=== PATIENT | male | born 1940 | race Caucasian/White ===

== ENCOUNTER 2018-08-03 14:01 | Emergency (ER) | payer MEDICARE ==
[~2018-08-03] VITALS: Ht 182.9 cm; Wt 73.0 kg
--- NOTE | 2018-08-03 14:13 | NUR ---
PT BIB [facility] FROM [place] DX AFTER ECHO WHICH WAS NORMAL, AFTER TEST PT REPORTS BECOMING DIZZY AND NEAR SYNCOPAL EPISODE. CURRENTLY UNDER TREATMENT FOR CA, STATES CANT EAT VERY WELL AND FEELS WEAK. HPTN INITIALLY FOR [facility], IV IN PLACE CL[employer] WORK[employer] 500ML NS GIVEN. CONNECTED TO ALL MONITORING, TACHY HR 120S, SATS 88% RA SUPP O2 APPLIED, RAPID RESP RATE. EKG COMPLETED. PA TO BEDSIDE FOR ASSESSMENT, AWAITING ORDERS AT THIS TIME. CALL LIGHT WITHIN REACH.
[2018-08-03 14:41] LABS: BASOPHILS # (AUTO) 0.01 x10^3/uL (0-0.1); BASOPHILS % (AUTO) 0 % (0-1); EOSINOPHILS # (AUTO) 0.03 x10^3/uL (0-0.4); EOSINOPHILS % (AUTO) 0 % (1-7); LYMPHOCYTES # (AUTO) 0.98 x10^3/uL (1-3.4); LYMPHOCYTES % (AUTO) 11 % (22-44); MD NO; MEAN CORPUSCULAR HEMOGLOBIN 29.7 pg (27.5-34.5); MEAN CORPUSCULAR HGB CONC 33.7 g/dL (33.2-36.2); MEAN CORPUSCULAR VOLUME 88.1 fL (81-97); MEAN PLATELET VOLUME 7.3 fL (7.4-10.4); MONOCYTES % (AUTO) 10 % (2-9); NEUTROPHILS # (AUTO) 6.97 x10^3/uL (1.8-6.8); NEUTROPHILS % (AUTO) 78 % (42-75); PLATELET COUNT 332 x10^3/uL (130-400); RED BLOOD COUNT 3.69 x10^6/uL (4.38-5.82); RED CELL DISTRIBUTION WIDTH 15.3 % (9.4-14.8)
[2018-08-03 14:52] LABS: ALANINE AMINOTRANSFERASE 182 U/L (12-78); ALBUMIN 2.3 g/dL (3.4-5.0); ANION GAP 10 mmol/L (5-15); CHLORIDE 103 mmol/L (98-107)
[2018-08-03 14:54] LABS: ALKALINE PHOSPHATASE 105 U/L (45-117); BILIRUBIN,TOTAL 0.4 mg/dL (0.2-1.0)
--- NOTE | 2018-08-03 15:07 | NUR ---
ALL RESULTS BACK AT THIS TIME, CHART UP FOR RECHECK
[2018-08-03] MEDS ORDERED: LISI-170 PO (15:11)
[2018-08-03] MEDS ORDERED: GLIP10TA13 PO (15:11)
--- NOTE | 2018-08-03 15:14 | NUR ---
NEW ORDERS RECEIVED FOR FLUIDS AT THIS TIME.
[2018-08-03] MEDS ORDERED: SODIUM CHLORIDE 0.9% 1,000ML IVBOLUS ONE (15:30)
--- NOTE | 2018-08-03 15:57 | NUR ---
FLUIDS COMPLETED. VSS. PT SLEEPING IN ROOM, NADN. AWAITING DISPO AT THIS TIME
[2018-08-03] MEDS ORDERED: CHEMO MEDS (15:58)
--- NOTE | 2018-08-03 16:07 | NUR ---
REPORT GIVEN TO RENETTA LANDRUM
--- NOTE | 2018-08-03 17:56 | NUR ---
Patient given discharge instructions and they have confirmed that they understand the instructions. Patient pushed in wheelchair to d/c. Pt left with all personal belongings, d/c paperwork, and taxi voucher.
[2018-08-03 17:57] VITALS: BP 132/81
[2018-08-04] MEDS ORDERED: BINI15TA PO (15:46)
[2018-08-04] MEDS ORDERED: ENCO75CA PO (15:46)
== END 2018-08-03 18:02 | disposition home or self-care (01) ==
LOC: ED 17:20
DX: R42 Dizziness and giddiness (principal); R55 Syncope and collapse; C43.9 Malignant melanoma of skin, unspecified
CPT/HCPCS: 36415; 80053; 85025; 93005; 99284; J7030

== ENCOUNTER 2018-08-04 15:26 | Inpatient (IN) | payer MEDICARE ==
[~2018-08-04] VITALS: Ht 182.9 cm; Wt 78.0 kg
[~2018-08-04 15:26] MED LIST: CHEMO MEDS; GLIP10TA13 PO; LISI-170 PO
--- NOTE | 2018-08-04 15:42 | NUR ---
LANDON BARRON AT BEDSIDE TO ASSESS
[2018-08-04] MEDS ORDERED: ENCO75CA PO (15:46)
[2018-08-04] MEDS ORDERED: BINI15TA PO (15:46)
[2018-08-04 16:12] LABS: BASOPHILS # (AUTO) 0.02 x10^3/uL (0-0.1); BASOPHILS % (AUTO) 0 % (0-1); EOSINOPHILS # (AUTO) 0.01 x10^3/uL (0-0.4); EOSINOPHILS % (AUTO) 0 % (1-7); LYMPHOCYTES # (AUTO) 0.69 x10^3/uL (1-3.4); LYMPHOCYTES % (AUTO) 7 % (22-44); MD NO; MEAN CORPUSCULAR HEMOGLOBIN 29.6 pg (27.5-34.5); MEAN CORPUSCULAR HGB CONC 33.6 g/dL (33.2-36.2); MEAN PLATELET VOLUME 7.5 fL (7.4-10.4); MONOCYTES # (AUTO) 0.81 x10^3/uL (0.2-0.8); MONOCYTES % (AUTO) 8 % (2-9); NEUTROPHILS # (AUTO) 8.44 x10^3/uL (1.8-6.8); NEUTROPHILS % (AUTO) 85 % (42-75); PLATELET COUNT 302 x10^3/uL (130-400); RED BLOOD COUNT 3.64 x10^6/uL (4.38-5.82); RED CELL DISTRIBUTION WIDTH 15.2 % (9.4-14.8)
[2018-08-04 16:24] LABS: ALANINE AMINOTRANSFERASE 277 U/L (12-78); ALBUMIN 2.3 g/dL (3.4-5.0); ANION GAP 12 mmol/L (5-15); CALCIUM 7.9 mg/dL (8.5-10.1); CHLORIDE 104 mmol/L (98-107); CREATININE 1.49 mg/dL (0.7-1.3); INTERNATIONAL NORMALIZED RATIO 1.11 (0.93-1.1); PROTHROMBIN TIME 11.6 Seconds (9.6-11.5)
[2018-08-04 16:28] LABS: ALKALINE PHOSPHATASE 108 U/L (45-117); BILIRUBIN,TOTAL 0.5 mg/dL (0.2-1.0); TOTAL PROTEIN 6.1 g/dL (6.4-8.2); TROPONIN I < 0.015 ng/mL (0.000-0.045)
--- NOTE | 2018-08-04 16:45 | NUR ---
PT IN CT SCAN AT THIS TIME
--- NOTE | 2018-08-04 16:58 | NUR ---
PT RETURNED FROM CT IN NAD
[2018-08-04] MEDS ORDERED: OMNIPAQUE 350 MG/ML, 150 ML BOTTLE ONE (16:59)
[2018-08-04] MEDS ORDERED: AZITHROMYCIN 500 MG in SODIUM CHLORIDE 0.9% 250 ML IVPB ONE (17:30)
[2018-08-04] MEDS ORDERED: CEFTRIAXONE PMX 1GM/50ML 50 ML IVPB ONE (17:30)
--- NOTE | 2018-08-04 17:50 | NUR ---
[employer] ME[employer]IC AT BEDSIDE TO DRAW CULTURES X 2 PRIOR TO RN INITIATING IV ABX. PT TO BE ADMITTED
[2018-08-04] MEDS ORDERED: CEFTRIAXONE PMX 2GM/50ML 50 ML ONE (17:57)
[2018-08-04] MEDS ORDERED: ONDANSETRON 2MG/ML, 2ML IVPush PRN (18:00)
[2018-08-04] MEDS ORDERED: ONDANSETRON ODT 4 MG PO PRN (18:00)
[2018-08-04] MEDS ORDERED: IBUPROFEN 600 MG TABLET PO PRN (18:00)
[2018-08-04] MEDS ORDERED: ENALAPRILAT 1.25 MG/ML, 2ML IVPush PRN (18:00)
[2018-08-04] MEDS ORDERED: hydrALAzine 20 MG/ML, 1ML IVPush PRN (18:00)
[2018-08-04] MEDS ORDERED: ACETAMINOPHEN 325 MG TABLET PO PRN (18:00)
[2018-08-04] MEDS: CEFTRIAXONE PMX 2GM/50ML 50 ML IV SCH (18:14)
[2018-08-04] MEDS: HEPARIN 5,000 UNITS/ML, 1ML SQ SCH (19:15)
[2018-08-04] MEDS: SODIUM CHLORIDE 0.9% 1,000 ML IV SCH (19:17)
[2018-08-04 19:31] VITALS: BP 101/55
[2018-08-04 21:17] LABS: HEMOGLOBIN A1C 6.9 % (4.2-6.3)
[2018-08-05 00:37] VITALS: BP 120/60
[2018-08-05] MEDS: HEPARIN 5,000 UNITS/ML, 1ML SQ SCH ×3 (01:41→17:13)
[2018-08-05] MEDS: SODIUM CHLORIDE 0.9% 1,000 ML IV SCH ×2 (04:30→15:57)
[2018-08-05 05:32] LABS: BASOPHILS # (AUTO) 0.01 x10^3/uL (0-0.1); BASOPHILS % (AUTO) 0 % (0-1); EOSINOPHILS # (AUTO) 0.03 x10^3/uL (0-0.4); EOSINOPHILS % (AUTO) 0 % (1-7); LYMPHOCYTES # (AUTO) 0.73 x10^3/uL (1-3.4); LYMPHOCYTES % (AUTO) 7 % (22-44); MD NO; MEAN CORPUSCULAR HEMOGLOBIN 29.9 pg (27.5-34.5); MEAN PLATELET VOLUME 8.1 fL (7.4-10.4); MONOCYTES # (AUTO) 1.26 x10^3/uL (0.2-0.8); MONOCYTES % (AUTO) 12 % (2-9); NEUTROPHILS # (AUTO) 8.42 x10^3/uL (1.8-6.8); NEUTROPHILS % (AUTO) 81 % (42-75); PLATELET COUNT 268 x10^3/uL (130-400); RED BLOOD COUNT 3.29 x10^6/uL (4.38-5.82); RED CELL DISTRIBUTION WIDTH 15.4 % (9.4-14.8)
[2018-08-05 05:36] LABS: ALBUMIN 2.1 g/dL (3.4-5.0); ANION GAP 9 mmol/L (5-15); CALCIUM 7.4 mg/dL (8.5-10.1); CHLORIDE 107 mmol/L (98-107)
[2018-08-05 05:41] LABS: ALANINE AMINOTRANSFERASE 260 U/L (12-78); ALKALINE PHOSPHATASE 96 U/L (45-117); BILIRUBIN,TOTAL 0.5 mg/dL (0.2-1.0); CREATININE 1.14 mg/dL (0.7-1.3); TOTAL PROTEIN 5.3 g/dL (6.4-8.2)
[2018-08-05 07:53] VITALS: BP 107/69
[2018-08-05] MEDS ORDERED: AZITHROMYCIN 500 MG TABLET PO SCH (09:00)
[2018-08-05 13:01] VITALS: BP 104/66
[2018-08-05 16:55] VITALS: BP 108/67
[2018-08-05] MEDS: CEFTRIAXONE PMX 2GM/50ML 50 ML IV SCH (17:13)
[2018-08-05 20:47] VITALS: BP 114/71
[2018-08-05] MEDS ORDERED: LORazepam 1MG TABLET ONE (22:51)
[2018-08-05] MEDS: LORazepam INTENSOL 2 MG/ML PO PRN (22:56)
[2018-08-06 01:58] VITALS: BP 96/62
[2018-08-06] MEDS: SODIUM CHLORIDE 0.9% 1,000 ML IV SCH (02:58)
[2018-08-06] MEDS: HEPARIN 5,000 UNITS/ML, 1ML SQ SCH (02:59)
[2018-08-06 06:40] VITALS: BP 109/67
[2018-08-06] MEDS: LORazepam INTENSOL 2 MG/ML PO PRN ×2 (12:01→20:33)
[2018-08-06 12:45] VITALS: BP 100/68
[2018-08-06] MEDS ORDERED: SCOPOLAMINE PATCH, 1.5MG PATCH.TD72 TD PRN (14:00)
[2018-08-06] MEDS: morphine SULFATE ORAL.CONC 20 MG/ML SL PRN ×5 (14:22→22:32)
--- NOTE | 2018-08-06 15:11 | NUR ---
SURAJ CORNEJO - Fall Risk Medications present and NOT receiving anticoagulants. PATIENT HAS RECENTLY TAKEN MORPHINE AND ATIVAN. Signed: 08/06/18 at 1513 by Haily BAUMAN
[2018-08-07] MEDS: morphine SULFATE ORAL.CONC 20 MG/ML SL PRN ×7 (00:09→23:31)
[2018-08-07] MEDS: LORazepam INTENSOL 2 MG/ML PO PRN ×3 (04:15→18:37)
[2018-08-07] MEDS ORDERED: BISACODYL 10 MG SUPP PR PRN (17:30)
[2018-08-08] MEDS: morphine SULFATE ORAL.CONC 20 MG/ML SL PRN ×3 (06:13→10:41)
[2018-08-08] MEDS: LORazepam INTENSOL 2 MG/ML PO PRN ×2 (06:31→08:56)
[2018-08-08] MEDS: ATROPINE OPHTH SOLN 1%, 5ML MM PRN ×2 (08:56→10:41)
== END 2018-08-08 12:34 | disposition expired | DRG 871 ==
LOC: ED 17:37 → EDIP 17:38 → ED 17:51 → 3NE 18:54 → 3NW 08-05 16:17
PROVIDERS: ADMIT Family Medicine; ATTEND Family Medicine
DX: A41.9 Sepsis, unspecified organism (principal); J15.9 Unspecified bacterial pneumonia; C34.90 Malignant neoplasm of unspecified part of unspecified bronchus or lung; E87.2 Acidosis; C85.90 Non-Hodgkin lymphoma, unspecified, unspecified site; C79.9 Secondary malignant neoplasm of unspecified site; E46 Unspecified protein-calorie malnutrition; C90.00 Multiple myeloma not having achieved remission; R09.02 Hypoxemia; I46.9 Cardiac arrest, cause unspecified; Z51.5 Encounter for palliative care; D63.8 Anemia in other chronic diseases classified elsewhere; C43.9 Malignant melanoma of skin, unspecified; Z66 Do not resuscitate; J43.9 Emphysema, unspecified; J38.3 Other diseases of vocal cords; Z87.891 Personal history of nicotine dependence; Z85.820 Personal history of malignant melanoma of skin; Z68.23 Body mass index [BMI] 23.0-23.9, adult
CPT/HCPCS: 36415; 71045; 71275; 80053; 83036; 83605; 83880; 84484; 85025; 85610; 85730; 87040; 93005; 96374; 99285; G0378; J0456; J0696; J1644; J2405; Q9967; J7030; J7050